=== PATIENT | male | born 1965 | race Caucasian/White ===

== ENCOUNTER 2021-09-05 13:43 | Emergency (ER) | payer OTHER, SELFPAY ==
[2021-09-05 13:54] VITALS: BP 141/97; PULSE 77; RESP 17; TEMP 36.4; O2SAT 97; BMI 32.1
--- NOTE | 2021-09-05 13:58 | DI.RAD.S_ITS ---
PROCEDURE: XR ELBOW LT MIN 3V INDICATIONS: injury a week ago, pain w/ use TECHNIQUE: 3 views of the elbow were acquired. COMPARISON: None. FINDINGS: Bones: No fractures or dislocations. No suspicious bony lesions. Soft tissues: No elbow joint effusion. No suspicious soft tissue calcifications. IMPRESSION: Unremarkable left elbow radiographs Approved by: Gumaro Chowdary M.D. on 09/05/2021 at 13:33
[2021-09-05 15:18] VITALS: PULSE 68
--- NOTE | 2021-09-05 15:44 | ED_ITS ---
HPI - Extremity Injury (Upper) <CAROLYN Mcclendon - Last Filed: 09/05/21 19:21> General Chief Complaint: Extremity Injury, Upper Stated Complaint: Left elbow injury Time Seen by Provider: 09/05/21 15:18 Source: patient Mode of arrival: Ambulatory History of Present Illness HPI narrative: This is a 56-year-old male presents to emergency department complaining of left elbow pain for 1 week after he was playing with his dog. Patient states that he has pain in the anterior aspect of his left elbow, he has pain with full extension from forearm to his mid bicep. Patient denies any sensation changes, denies any limited range of motion or mobility in his fingers, states that he did not hit it on anything or have any open wounds. Patient has not taking any medication for this today, states he took Aleve last night. Patient denies eating any food yet today. Patient is right-handed, denies any repetitive use in his left arm, denies any posterior elbow pain, weakness, numbness or tingling. Related Data Home Medications Medication Instructions Recorded Confirmed cetirizine 10 mg tablet 10 mg PO QDAY #0 tab 01/20/16 esomeprazole magnesium 40 mg 40 mg PO QDAY #0 01/20/16 capsule,delayed release (Nexium) fluticasone propionate 50 #0 01/20/16 mcg/actuation nasal spray,suspension hydrochlorothiazide 12.5 mg capsule 12.5 mg PO QDAY #0 cap 01/20/16 lisinopril 20 mg tablet 20 mg PO QDAY #0 01/20/16 ranitidine HCl 150 mg tablet #0 01/20/16 Allergies Allergy/AdvReac Type Severity Reaction Status Date / Time Penicillins [PENICILLINS] Allergy Intermediate Verified 09/05/21 13:57 STEROID EAR DROPS Allergy Intermediate Uncoded 08/24/17 12:17 Review of Systems <CAROLYN Mcclendon - Last Filed: 09/05/21 19:21> Review of Systems Narrative: General: denies fever, chills, malaise, sweats, fatigue Head/Neck: denies headache, neck pain, dizziness Eyes: denies visual changes, eye pain Cardio: denies chest pain, palpitations, edema Respiratory: denies dyspnea, cough, orthopnea MSK: Denies muscle weakness, endorses left medial elbow pain on the anterior aspect Skin: denies rash, itching, skin lesions or other Neuro: denies numbness, tingling Patient History <CAROLYN Mcclendon - Last Filed: 09/05/21 19:21> Social History Smoking Status: Former smoker Smoking Status: Former smoker alcohol intake frequency: holidays/special occasions only Substance Use Type: does not use Exam <CAROLYN Mcclendon - Last Filed: 09/05/21 19:21> Narrative Exam Narrative: Independently reviewed vitals signs and nursing notes. General: cooperative, comfortable, in no acute distress, well developed and well groomed Head: atraumatic, symmetrical facial expressions Neck: supple, atraumatic, without lymphadenopathy. Eyes: pupils equal round and reactive, EOMI, conjunctiva normal Nose: nares patent, no rhinorrhea Mouth/Throat: moist mucus membranes Cardiovascular: regular rate and rhythm, no peripheral edema, warm extremities MSK: moves all extremities, ambulatory w/steady gait, neurovascularly intact, no weakness, left arm with no range of motion deficit, patient has equal strength bilaterally, cap refill less than 2 seconds in his left fingers, full range of motion intact in his hand. Patient complains of pain from his mid biceps to his mid forearm when his arm is in full extension. He is able to fully extend and fully flex his left arm, no edema, wound, warmth, ecchymosis, or discoloration. Skin: brisk capillary refill, no rash, no erythema Neuro: normal speech and cognition, A&O x3, normal tone Psych: mental status is grossly normal, congruent mood, normal affect, pleasant and cooperative Initial Vital Signs Initial Vital Signs: Vital Signs Temperature 97.6 F 09/05/21 13:54 Pulse Rate 77 09/05/21 13:54 Respiratory Rate 17 09/05/21 13:54 Blood Pressure 141/97 H 09/05/21 13:54 Pulse Oximetry 97 09/05/21 13:54 <Lolis Gutierrez MD - Last Filed: 09/06/21 07:40> Initial Vital Signs Initial Vital Signs: Vital Signs Temperature 97.6 F 09/05/21 13:54 Pulse Rate 77 09/05/21 13:54 Respiratory Rate 17 09/05/21 13:54 Blood Pressure 141/97 H 09/05/21 13:54 Pulse Oximetry 97 09/05/21 13:54 Course <CAROLYN Mcclendon - Last Filed: 09/05/21 19:21> Orders Ordered: ED Orders 09/05/21 13:58 XR elbow LT min 3V Stat Vital Signs Vital signs: Vital Signs - 8 hr 09/05/21 13:54 09/05/21 15:18 Temperature 97.6 F Pulse Rate 77 Pulse Rate [Left Radial] 68 Respiratory Rate 17 Blood Pressure 141/97 H Pulse Oximetry 97 <Lolis Gutierrez MD - Last Filed: 09/06/21 07:40> Orders Ordered: ED Orders 09/05/21 13:58 XR elbow LT min 3V Stat Vital Signs Vital signs: Vital Signs - 8 hr 09/05/21 13:54 09/05/21 15:18 Temperature 97.6 F Pulse Rate 77 Pulse Rate [Left Radial] 68 Respiratory Rate 17 Blood Pressure 141/97 H Pulse Oximetry 97 MDM - Extremity Injury (Upper) <CAROLYN Mcclendon - Last Filed: 09/05/21 19:21> Imaging Data Extremity x-ray #1: Radiologist's Impression: PROCEDURE:? XR ELBOW LT MIN 3V ? INDICATIONS:? injury a week ago, pain w/ use ? TECHNIQUE:? 3 views of the elbow were acquired.? ? COMPARISON:? None. ? FINDINGS:? ? Bones:? No fractures or dislocations.? No suspicious bony lesions.? ? Soft tissues:? No elbow joint effusion.? No suspicious soft tissue calcifications.? ? ? IMPRESSION:? ? Unremarkable left elbow radiographs ? ? ? Approved by: Gumaro Chowdary M.D. on 09/05/2021 at 13:33? [facility] Narrative Medical decision making narrative: This is a 56-year-old male presents to the emergency department with 1 week of anterior left elbow pain without trauma. Patient states that he was playing with his dog a week ago and has had pain with use of his arm in his biceps and mid forearm muscles. Patient's x-ray was negative for fracture, dislocation, or joint effusion. Patient has muscle tenderness to palpation in his biceps and forearm. No ecchymosis or visible injury. Patient is able to fully extend and fully flex his left arm, suspect this is a muscle strain. Patient did not want any medication today, recommend Voltaren gel, lidocaine patches if he would like to use medications or Tylenol and ibuprofen. Patient was nontoxic appearing, no erythema or signs of infection. This is likely a muscle strain but not to exclude tendinitis, No posterior elbow pain. No tenderness over proximal radius or ulna. Patient is appropriate and amenable to discharge home. Vital signs are stable on repeat examination is unremarkable. Patient has been informed of results. Patient has been given strict return to ER precautions for any new or worsening symptoms. Patient understands to follow up closely with outpatient providers as instructed. Patient understands plan and agrees to discharge home. All questions and concerns answered at this time. Discharge Plan Departure Patient Disposition: Home Clinical Impression: Elbow pain, left Instructions: Elbow Sprain Activity Restrictions/Additional Instructions: *You have been diagnosed with left elbow pain which is likely a sprain from when your playing with her dogs. Your x-ray does not show any fracture, and you have full range of motion which is a great sign. If for some reason you are not able to extend her arm or flex it all the way, please have this evaluated again. Please try topical Voltaren gel, another name for it is diclofenac. Use ice, rest, try putting her hand in her pocket and avoiding overusing your left arm until it gets better. If this is not start to get better after 1 or 2 more weeks, please follow-up with your primary doctor or Orthopedics. Please follow- up with your doctor for a physical therapy referral, this might be helpful for you. *What to do: *Please continue to take your regular medications as directed. [ ] New medication prescriptions sent to your pharmacy: [ ] [ ] New medication written as a paper prescription [x ] No new medications given *Please follow up with your primary care provider in 2-3 days, call for an appo intment. Let them know you were seen in the Emergency Department and that we asked that you be seen for follow-up. We will electronically transmit a record of today's note if your PCP is in our system *If you do not have a primary care provider please contact [phone] to establish care with one of the [facility] primary care providers. *Return to Emergency Department if you should have any new, worsening or concerning symptoms, such as [fever greater than 101F, chills, worsening pain, persistent vomiting or other bothersome symptoms] Prescriptions: No Action fluticasone propionate 16 GM spray,suspension Qty: 0 0RF cetirizine 10 MG tablet 10 mg PO QDAY Qty: 0 0RF lisinopril 20 MG tablet 20 mg PO QDAY Qty: 0 0RF esomeprazole magnesium [Nexium] 40 MG capsule,delayed release(DR/EC) 40 mg PO QDAY Qty: 0 0RF hydrochlorothiazide 12.5 MG capsule 12.5 mg PO QDAY Qty: 0 0RF ranitidine HCl 150 MG tablet Qty: 0 0RF Referrals: Phill Driscoll DO [Primary Care Provider] - <Lolis Gutierrez MD - Last Filed: 09/06/21 07:40> Cosign ED Attending Cosignature Attestation: I was immediately available in the department for consultation throughout this patient's visit. I agree with documentation as above. Lolis Gutierrez MD
== END 2021-09-05 15:46 | disposition home or self-care (01) ==
PROVIDERS: Emergency Provider Nurse Practitioner Critical Care Medicine; Family Provider Registered Nurse Diabetes Educator; PCP Student in an Organized Health Care Education/Training Program
DX: M25.522 Pain in left elbow (principal); Z87.891 Personal history of nicotine dependence
CPT/HCPCS: 73080; 99283

== ENCOUNTER → 2023-03-16 15:01 | Outpatient (CLI) | payer OTHER, SELFPAY ==
--- NOTE | 2023-03-16 15:04 | DI.MRI.S_ITS ---
PROCEDURE: MR LUMBAR SPINE WO CON INDICATIONS: Low back pain, unspecified TECHNIQUE: Noncontrast sagittal T1 spin echo and T2 fast echo, sagittal STIR, and T2 fast spin echo through the lumbar spine. In cases with scoliosis, additional coronal T2 fast spin echo may be performed. COMPARISON: [facility], CR, XR LUMBAR SPINE 2 OR 3 VIEWS, 03/02/2023, 18:05. FINDINGS: Image quality: Excellent. Alignment and Curvature: There is normal bony alignment. Bone Marrow: Marrow is of normal overall signal. No acute vertebral body compression fractures. Spinal Cord: Conus medullaris terminates at the L1 level. Visualized cord demonstrates normal signal and size. Paraspinous Soft Tissues: No paravertebral masses. T12-L1: No significant neuroforaminal or spinal canal stenosis. L1-L2: Minimal loss of disc signal intensity. Mild symmetric disc bulge. Degenerative endplate changes. No significant neuroforaminal or spinal canal stenosis. L2-L3: No significant neuroforaminal or spinal canal stenosis. L3-L4: Mild bilateral facet arthropathy and ligamentum flavum hypertrophy. Small symmetric disc bulge. Minimal bilateral neuroforaminal stenosis without spinal canal stenosis. L4-L5: Minimal loss of disc signal intensity small symmetric disc bulge. Mild-moderate bilateral facet arthropathy. This is more pronounced on the right. No significant spinal canal stenosis. There is mild-moderate right and mild left bilateral neuroforaminal stenosis. L5-S1: Mild bilateral facet arthropathy. No significant neuroforaminal or spinal canal stenosis. IMPRESSION: Lumbar spine without acute abnormalities. Multilevel, multifactorial lumbar spondylosis as detailed above by vertebral body level. Findings are most severe at L4-5. Dictated by: César Rowe M.D. on 03/16/2023 at 17:45 Approved by: César Rowe M.D. on 03/16/2023 at 17:52
== END ==
PROVIDERS: Family Provider Registered Nurse Diabetes Educator; PCP Student in an Organized Health Care Education/Training Program; Referring Provider Nurse Practitioner Family; Visit Provider Nurse Practitioner Family
DX: M47.816 Spondylosis without myelopathy or radiculopathy, lumbar region (principal); M47.817 Spondylosis without myelopathy or radiculopathy, lumbosacral region; M54.50 Low back pain, unspecified
CPT/HCPCS: 72148